=== PATIENT | male | born 1945 | race Caucasian/White ===

== ENCOUNTER 2020-02-19 05:46 | Day surgery (SDC) | payer MEDICARE ==
[2020-02-19] MEDS ORDERED: LACTATED RINGERS 1,000 ML ONE (06:41)
== END 2020-02-19 08:30 | disposition home or self-care (01) ==
LOC: AMB 05:46
PROVIDERS: ATTEND Surgery
DX: L98.9 Disorder of the skin and subcutaneous tissue, unspecified (principal); Z53.09 Procedure and treatment not carried out because of other contraindication